=== PATIENT | female | born 2000 | race African-American/Black ===

== ENCOUNTER 2023-04-08 14:51 | Emergency (ER) | payer BC ==
[2023-04-08 15:11] VITALS: BP 126/65; PULSE 86; RESP 18; TEMP 98.2; BMI 23.1
[2023-04-08] MEDS ORDERED: BACITRACIN ZINC 15 GM TUBE TOPICAL OINTMENT ONE (15:45)
== END 2023-04-08 15:53 | disposition home or self-care (01) ==
LOC: JER 14:51 → JERFT 14:51
DX: L30.4 Erythema intertrigo (principal); N89.9 Noninflammatory disorder of vagina, unspecified
CPT/HCPCS: 99282-25

== ENCOUNTER 2023-05-07 10:19 | Emergency (ER) | payer BC ==
[2023-05-07 10:28] VITALS: TEMP 97.5; BMI 22.6
[2023-05-07] MEDS ORDERED: KETOROLAC TROMETHAMINE 30 MG/1 ML VIAL IM ONE (11:03)
[2023-05-07] MEDS ORDERED: KETOROLAC TROMETHAMINE 30 MG/1 ML VIAL ONE (11:30)
[2023-05-07 12:56] VITALS: BP 121/77; PULSE 58; RESP 11
== END 2023-05-07 13:02 | disposition home or self-care (01) ==
LOC: JER 10:19
PROC: 3E0233Z Introduction of Anti-inflammatory into Muscle, Percutaneous Approach (ICD-10-PCS; principal; 2023-05-07)
DX: R07.9 Chest pain, unspecified (principal); R00.2 Palpitations; R06.02 Shortness of breath
CPT/HCPCS: 93005; 93010; 99284-25